=== PATIENT | female | born 1955 | race African-American/Black ===

== ENCOUNTER → 2017-05-08 | Outpatient (CLI) | payer OTHER ==
--- NOTE | 2017-05-08 11:01 | DIREP ---
PROCEDURE:XRAY FOOT MIN 3 VWS-LT COMPARISON:None. INDICATIONS:FIBROMALGIA, FATIGUE, POLYARTHROPATHY FINDINGS: BONES:Plantar and posterior calcaneal spurs noted, otherwise unremarkable JOINTS:Mild degenerative changes of the 1st metatarsophalangeal and interphalangeal joints. SOFT TISSUES:Normal. OTHER:No additional findings. CONCLUSION:Mild osteoarthritic change Dictated by: Cristi Garcia DO on 05/08/2017 at 10:59 AM
--- NOTE | 2017-05-08 11:03 | DIREP ---
PROCEDURE:XRAY HAND MIN 3 VW-LT COMPARISON:None. INDICATIONS:FIBROMALGIA, FATIGUE, POLYARTHROPATHY FINDINGS: BONES:Normal. JOINTS:Moderate degenerative changes of the gahecy-lyttxlww-qsiswtleuyt joint and 1st carpometacarpal joint, compatible with osteoarthritis. SOFT TISSUES:Normal. OTHER:No additional findings. CONCLUSION:Moderate osteoarthritis changes as detailed above. Dictated by: Cristi Garcia DO on 05/08/2017 at 11:00 AM
--- NOTE | 2017-05-08 11:04 | DIREP ---
PROCEDURE:XRAY KNEE 3 VIEWS-LT COMPARISON:None. INDICATIONS:FIBROMALGIA, FATIGUE, POLYARTHROPATHY FINDINGS: BONES:Mild trochlear dysplasia. Minimal lateral patellar tracking. Tricompartmental osteophytes and medial compartment joint space narrowing compatible with grade 3 osteoarthritis. JOINTS:No effusion. SOFT TISSUES:Normal. OTHER:No additional findings. 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 Dictated by: Critsi Garcia DO on 05/08/2017 at 11:02 AM
--- NOTE | 2017-05-08 11:05 | DIREP ---
PROCEDURE:XRAY HAND MIN 3 VW-RT COMPARISON:None. INDICATIONS:FIBROMALGIA, FATIGUE, POLYARTHROPATHY FINDINGS: BONES:Normal. JOINTS:Moderate degenerative changes of the 1st carpometacarpal and sflrko-wmoboqpv-wcdgtnlodkr joints, compatible with osteoarthritis. SOFT TISSUES:Normal. OTHER:No additional findings. CONCLUSION:Moderate degenerative changes of the 1st carpometacarpal and syzfhk-nadqbrnv-rkmqrvjcmcv joints, compatible with osteoarthritis. Dictated by: Cristi Garcia DO on 05/08/2017 at 11:03 AM
--- NOTE | 2017-05-08 11:05 | DIREP ---
PROCEDURE:CHEST 2 VIEWS COMPARISON:None. INDICATIONS:FIBROMALGIA, FATIGUE, POLYARTHROPATHY FINDINGS: LUNGS/PLEURA:No significant pulmonary parenchymal abnormalities. No effusions. VASCULATURE:Normal. Unremarkable pulmonary vasculature. CARDIAC:Normal. No cardiac silhouette abnormality or cardiomegaly. MEDIASTINUM:Normal. No visible mass or adenopathy. BONES:Normal. No fracture or visible bony lesion. OTHER:Negative. CONCLUSION:No acute cardiopulmonary process. Dictated by: Cristi Garcia DO on 05/08/2017 at 11:03 AM
--- NOTE | 2017-05-08 11:06 | DIREP ---
PROCEDURE:XRAY KNEE 3 VIEWS-RT COMPARISON:None. INDICATIONS:FIBROMALGIA, FATIGUE, POLYARTHROPATHY FINDINGS: BONES:Mild trochlear dysplasia and neutral patellar tracking. Tricompartmental osteophytes with minimal medial compartment joint space narrowing compatible with grade 3 osteoarthritis. JOINTS:Small joint effusion. SOFT TISSUES:Normal. OTHER:No additional findings. CONCLUSION:Small joint effusion and grade 3 osteoarthritis Dictated by: Cristi Garcia DO on 05/08/2017 at 11:04 AM
--- NOTE | 2017-05-08 11:07 | DIREP ---
PROCEDURE:XRAY FOOT MIN 3 VWS-RT COMPARISON:None. INDICATIONS:FIBROMALGIA, FATIGUE, POLYARTHROPATHY FINDINGS: BONES:Plantar and posterior calcaneal spurs noted. Otherwise no. JOINTS:Normal. SOFT TISSUES:Normal. OTHER:No additional findings. CONCLUSION:Plantar posterior calcaneal spurs. Otherwise normal Dictated by: Cristi Garcia DO on 05/08/2017 at 11:05 AM
== END | disposition home or self-care (01) ==
LOC: RAD 09:17
PROVIDERS: ATTEND Internal Medicine Rheumatology
DX: M19.072 Primary osteoarthritis, left ankle and foot (principal); M19.071 Primary osteoarthritis, right ankle and foot; M19.042 Primary osteoarthritis, left hand; M19.041 Primary osteoarthritis, right hand; M17.0 Bilateral primary osteoarthritis of knee
CPT/HCPCS: 71020; 73130-LT; 73130-RT; 73562-LT; 73562-RT; 73630-LT; 73630-RT

== ENCOUNTER → 2017-06-14 | Outpatient (CLI) | payer OTHER | END | disposition home or self-care (01) | LOC: LAB 08:57 | PROVIDERS: ATTEND Internal Medicine Rheumatology | DX: M05.79 Rheumatoid arthritis with rheumatoid factor of multiple sites without organ or systems involvement (principal); R76.0 Raised antibody titer | CPT/HCPCS: 36415; 80076 ==

== ENCOUNTER → 2018-04-10 | Outpatient (CLI) | payer OTHER ==
--- NOTE | 2018-04-10 14:54 | DIREP ---
PROCEDURE:Digital Screening Mammogram TECHNIQUE:MLO, CC, XCCL, and cleavage digital images of each breast are provided. Computer Assisted Detection (CAD) was utilized. COMPARISON:None. INDICATIONS:SCREENING BREAST COMPOSITION:There are scattered areas of fibroglandular density. FINDINGS:There are no grouped microcalcifications, masses, or architectural distortions to suggest malignancy. IMPRESSION:No mammographic evidence of malignancy. RECOMMENDATIONS:Routine Screening Mammography per [employer] guidelines. OVERALL FINAL ASSESSMENT:BI-RADS 1 - Negative Mammogram Note: This facility participates in a mammography screening patient reminder system. Dictated by: Lalo Starkey M.D. on 04/10/2018 at 02:51 PM
== END | disposition home or self-care (01) ==
LOC: RAD 15:13
PROVIDERS: ATTEND Internal Medicine
DX: Z12.31 Encounter for screening mammogram for malignant neoplasm of breast (principal)
CPT/HCPCS: 77067